=== PATIENT | female | born 1980 | race Caucasian/White ===

== ENCOUNTER 2017-12-05 14:04 | Emergency (ER) | payer BC ==
[2017-12-05] MEDS ORDERED: Fluconazole 150 MG Tab ONE (15:00)
[2017-12-05] MEDS ORDERED: Doxycycline 100 MG Cap ONE (15:00)
[2017-12-05] MEDS ORDERED: Ondansetron 4 MG Tab.DIS ONE (15:00)
--- NOTE | 2017-12-05 15:12 | EDM.PDOC ---
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 Patient states she noticed a large bug bite of the right thigh today and was in [facility]. There were a lot of mosquitoes and bites but doesn't recall if a tick bit her. She denies any other symptoms or concerns. Onset: Unknown/Unsure Duration: Other (unsure) Location: Reports: Lower Extremity, Right Improves with: Reports: None Worsens with: Reports: None Associated Symptoms: Reports: No Other Symptoms ED ROS GENERAL - Review of Systems Review Of Systems: ROS reveals no pertinent complaints other than HPI. ED EXAM, GENERAL - Physical Exam Exam: See Below Exam Limited By: No Limitations General Appearance: Alert, WD/WN, No Apparent Distress Ears: Normal External Exam Nose: Normal Inspection Throat/Mouth: Normal Inspection Head: Atraumatic, Normocephalic Neck: Normal Inspection Respiratory/Chest: No Respiratory Distress Cardiovascular: Normal Peripheral Pulses Neurological: Alert, Oriented Skin Exam: Other (indurated reddened 8x9cm area with some central area of a bite appearance and possible clearing of the right inner thigh) Departure - Departure Time of Disposition: 15:00 Disposition: Home, Self-Care 01 Condition: Good Clinical Impression: Tick bite of left thigh Qualifiers: Encounter type: initial encounter Qualified Code(s): S70.362A - Insect bite ( nonvenomous), left thigh, initial encounter; W57.XXXA - Bitten or stung by nonvenomous insect and other nonvenomous arthropods, initial encounter - Discharge Information Instructions: Tick Bite Information, Adult, [id number] Forms: ED Department Discharge Additional Instructions: Take medication as prescribed. if you have any questions or concerns please call us at [phone]. Counseled on possible tick bite due to appearance of possible bullseye. Patient counseled on doxycycline use and given diflucan for yeast infection if develops and zofran as needed. F/u if any further concerns or worsening of symptoms. Counseled on medication side effects and management.
[2017-12-05 15:51] VITALS: BP 102/65
== END 2017-12-05 15:10 | disposition home or self-care (01) ==
LOC: LB.ED 14:04
DX: S70.362A Insect bite (nonvenomous), left thigh, initial encounter (principal); W57.XXXA Bitten or stung by nonvenomous insect and other nonvenomous arthropods, initial encounter
CPT/HCPCS: 99281; A9270

== ENCOUNTER 2022-12-07 23:25 | Emergency (ER) | payer BC ==
[2022-12-07] MEDS ORDERED: Orphenadrine 60 MG/2 ML Inj IM ONE (23:42)
[2022-12-08 00:02] LABS: APPEARANCE,URINE CLEAR (CLEAR); BILIRUBIN,URINE NEGATIVE (NEGATIVE); COLOR,URINE YELLOW; GLUCOSE,URINE NEGATIVE (NEGATIVE); KETONES,URINE NEGATIVE (NEGATIVE); LEUKOCYTE ESTERASE,URINE NEGATIVE (NEGATIVE); NITRITE,URINE NEGATIVE (NEGATIVE); OCCULT BLOOD,URINE NEGATIVE (NEGATIVE); PROTEIN,URINE NEGATIVE (NEGATIVE); UROBILINOGEN,URINE 0.2 E.U./dL (0.2-1.0)
== END 2022-12-08 00:25 | disposition home or self-care (01) ==
LOC: LB.ED 23:25
DX: S73.101A Unspecified sprain of right hip, initial encounter (principal)
CPT/HCPCS: 72100; 73501-RT; 81003; 99283